=== PATIENT | male | born 1985 ===

== ENCOUNTER 2023-01-22 10:05 | Emergency (ER) | payer OTHER ==
[~2023-01-22] VITALS: Ht 167.6 cm; Wt 77.1 kg
--- NOTE | 2023-01-22 10:35 | NUR ---
Spiritual Care - ED Trauma Pt. is [place]ese speaking. 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 Facilitated a short life review with Sp. speaking spouse. Pts. brother is the primary assistant offset press operator and he assisted as I facilitaed prayer for Pt. Pt. and fmaily verbalized gratitude for the spiritual care visit. Will remain available to the Pt. and family.
[2023-01-22 10:36] LABS: Source, Urine Voided
[2023-01-22 10:42] LABS: Appearance, Urine Clear (Clear); Bilirubin, Urine Neg (Neg); Blood, Urine 1+ (Neg); Glucose Qualitative, Urine Neg (Neg); Ketones, Urine Neg (Neg); Leukocyte Esterase, Urine Neg (Neg); Nitrite, Urine Neg (Neg); Protein, Urine Neg (Neg); Urobilinogen, Urine NORM (Normal)
[2023-01-22 10:53] LABS: Color, Urine Pale Yellow (P-Yellow)
[2023-01-22 10:56] LABS: Bacteria Rare /hpf; Squamous Epithelial Cells Rare /hpf (Few); White Blood Cells, Urine 0-2 /hpf (0-5)
[2023-01-22] MEDS ORDERED: CEPH500 PO (12:11)
[2023-01-22] MEDS ORDERED: IBUP600 PO (12:11)
[2023-01-22 13:03] VITALS: BP 130/84
== END 2023-01-22 13:08 | disposition home or self-care (01) ==
LOC: ER 10:05
PROVIDERS: Emergency Medicine
DX: S31.31XA Laceration without foreign body of scrotum and testes, initial encounter (principal); W01.198A Fall on same level from slipping, tripping and stumbling with subsequent striking against other object, initial encounter; Y93.89 Activity, other specified; Y99.0 Civilian activity done for income or pay
CPT/HCPCS: 72170; 76870; 81001; 96365; 99284-25; J0690

== ENCOUNTER 2023-01-29 10:27 | Emergency (ER) | payer OTHER ==
[~2023-01-29] VITALS: Ht 162.6 cm; Wt 72.6 kg
[~2023-01-29 10:27] MED LIST: CEPH500 PO; IBUP600 PO
[2023-01-29 11:14] VITALS: BP 162/107
== END 2023-01-29 12:54 | disposition home or self-care (01) ==
LOC: ER 10:27
DX: S31.31XD Laceration without foreign body of scrotum and testes, subsequent encounter (principal); Z48.02 Encounter for removal of sutures; W22.8XXD Striking against or struck by other objects, subsequent encounter
CPT/HCPCS: 99281

== ENCOUNTER 2023-02-12 09:51 | Emergency (ER) | payer OTHER ==
[~2023-02-12] VITALS: Ht 167.6 cm; Wt 63.5 kg
[2023-02-12 10:20] VITALS: BP 159/99
[2023-02-12 11:09] LABS: Source, Urine Clean Catch
[2023-02-12 11:13] LABS: Appearance, Urine Clear (Clear); Bilirubin, Urine Neg (Neg); Blood, Urine 1+ (Neg); Color, Urine Yellow (P-Yellow); Glucose Qualitative, Urine Neg (Neg); Ketones, Urine Neg (Neg); Leukocyte Esterase, Urine Neg (Neg); Nitrite, Urine Neg (Neg); Protein, Urine Neg (Neg); Specific Gravity, Urine 1.025 (1.003-1.022); Urobilinogen, Urine NORM (Normal)
[2023-02-12 11:27] LABS: Bacteria Rare /hpf; Calcium Oxalate Crystals Rare /hpf; Mucus Light (0-Heavy); Squamous Epithelial Cells Rare /hpf (Few); White Blood Cells, Urine 0-2 /hpf (0-5)
[2023-02-12] MEDS ORDERED: IBUP400 PO (12:16)
[2023-02-12] MEDS ORDERED: ACET500 PO (12:16)
== END 2023-02-12 12:26 | disposition home or self-care (01) ==
LOC: ER 09:51
PROVIDERS: Physician Assistant
DX: N99.841 Postprocedural hematoma of a genitourinary system organ or structure following other procedure (principal); Z87.828 Personal history of other (healed) physical injury and trauma; R03.0 Elevated blood-pressure reading, without diagnosis of hypertension
CPT/HCPCS: 72170; 76870; 81001; A9270